=== PATIENT | female | born 1930 | race Caucasian/White ===

== ENCOUNTER 2021-01-15 00:09 | Inpatient (IN) | payer MEDICARE, BC ==
[~2021-01-15] VITALS: Ht 152.4 cm; Wt 50.1 kg
--- NOTE | 2021-01-15 00:52 | NUR ---
REPORT RECEIVED FROM [facility]
--- NOTE | 2021-01-15 01:11 | NUR ---
PT LAYING IN BED, ALL NEEDS IN REACH, CALL LIGHT IN REACH, NAD AT THIS TIME, VSS
--- NOTE | 2021-01-15 01:12 | NUR ---
PT NOT COMPLAINING OF ANY CHEST PAIN, PT STATED SHE JUST FEELS SLEEPY AT THIS TIME
[2021-01-15] MEDS ORDERED: HEPARIN 25,000 UNITS/250ML PMX 250 ML IV PRN (01:30)
[2021-01-15] MEDS ORDERED: HEPARIN 5,000 UNITS/ML, 1ML IV PRN (01:30)
[2021-01-15] MEDS ORDERED: HEPARIN 5,000 UNITS/ML, 1ML IV ONE (01:30)
[2021-01-15] MEDS ORDERED: HEPARIN 5,000 UNITS/ML, 1ML ONE (01:33)
[2021-01-15] MEDS ORDERED: HEPARIN 25,000 UNITS/250ML PMX 250 ML ONE (01:33)
[2021-01-15] MEDS ORDERED: morphine SULFATE 10 MG/ML, 1ML IVPush PRN (02:00)
[2021-01-15] MEDS ORDERED: ONDANSETRON 2MG/ML, 2ML IVPush PRN (02:00)
[2021-01-15] MEDS ORDERED: LABETALOL 5MG/ML, 20ML IVPush PRN (02:00)
[2021-01-15] MEDS ORDERED: NITROGLYCERIN 0.4 MG BOTTLE (25 TABS) SL PRN (02:00)
[2021-01-15] MEDS ORDERED: ACETAMINOPHEN 325 MG TABLET PO PRN (02:00)
[2021-01-15] MEDS ORDERED: MELATONIN 5 MG TABLET PO PRN (02:00)
[2021-01-15] MEDS ORDERED: NITROGLYCERIN 0.4 MG/SPRAY SL PRN (02:00)
[2021-01-15] MEDS ORDERED: POLYETHYLENE GLYCOL 17 GM PACKET PO PRN (02:00)
[2021-01-15 03:20] VITALS: BP 127/72
[2021-01-15] MEDS ORDERED: ALBUTEROL SULFATE 2.5 MG/3 ML NPPB PRN (04:30)
[2021-01-15] MEDS: ASPIRIN 81 MG TABLET EC PO SCH (05:58)
[2021-01-15] MEDS ORDERED: METOPROLOL SUCCINATE 25 MG TAB.ER.24H PO SCH (06:00)
[2021-01-15 06:01] VITALS: BP 105/77
[2021-01-15 06:47] LABS: BASOPHILS % (AUTO) 0 % (0-1); EOSINOPHILS % (AUTO) 0 % (1-7); LYMPHOCYTES % (AUTO) 15 % (22-44); MEAN CORPUSCULAR HEMOGLOBIN 31.5 pg (27.0-34.8); MEAN CORPUSCULAR HGB CONC 33.9 g/dL (32.4-35.8); MEAN PLATELET VOLUME 7.4 fL (7.4-10.4); MONOCYTES % (AUTO) 9 % (2-9); NEUTROPHILS % (AUTO) 75 % (42-75); PLATELET COUNT 613 x10^3/uL (130-400); RED BLOOD COUNT 3.68 x10^6/uL (3.82-5.3); RED CELL DISTRIBUTION WIDTH 13.9 % (9.6-15.2)
[2021-01-15 06:56] LABS: ANION GAP 5 mmol/L (5-15); CALCIUM 8.2 mg/dL (8.5-10.1); CHLORIDE 106 mmol/L (98-107); CHOLESTEROL, TOTAL 135 mg/dL (140-239); CREATININE 1.15 mg/dL (0.55-1.02); TRIGLYCERIDES 31 mg/dL (50-200); VLDL CHOLESTEROL 6 mg/dL (0-25)
[2021-01-15 07:06] LABS: CHOL/HDL RATIO 2.2; HDL CHOL % 45 % (28-40); HDL CHOLESTEROL (DIRECT) 61 mg/dL (40-60); LDL CHOLESTEROL,CALCULATED 68 mg/dL (54-169); LDL/HDL RATIO 1.1 (0.5-3.0)
[2021-01-15] MEDS ORDERED: LISINOPRIL 5 MG TABLET PO SCH (09:00)
[2021-01-15 15:30] VITALS: BP 94/69
[2021-01-15 21:00] VITALS: BP 94/58
[2021-01-15] MEDS: ATORVASTATIN 40 MG TABLET PO SCH (21:14)
[2021-01-16 01:06] VITALS: BP 89/45
[2021-01-16] MEDS: ASPIRIN 81 MG TABLET EC PO SCH (05:29)
[2021-01-16 05:33] VITALS: BP 90/50
[2021-01-16] MEDS: SODIUM CHLORIDE 0.9% 1,000 ML IV SCH ×4 (05:40→23:18)
[2021-01-16 06:23] LABS: BASOPHILS % (AUTO) 1 % (0-1); EOSINOPHILS % (AUTO) 1 % (1-7); LYMPHOCYTES % (AUTO) 19 % (22-44); MEAN CORPUSCULAR HEMOGLOBIN 31.9 pg (27.0-34.8); MEAN CORPUSCULAR HGB CONC 33.8 g/dL (32.4-35.8); MEAN PLATELET VOLUME 7.9 fL (7.4-10.4); MONOCYTES % (AUTO) 8 % (2-9); NEUTROPHILS % (AUTO) 71 % (42-75); PLATELET COUNT 616 x10^3/uL (130-400); RED BLOOD COUNT 3.65 x10^6/uL (3.82-5.3); RED CELL DISTRIBUTION WIDTH 13.5 % (9.6-15.2)
[2021-01-16 06:34] LABS: ALANINE AMINOTRANSFERASE 52 U/L (12-78); ALBUMIN 2.9 g/dL (3.4-5.0); ANION GAP 4 mmol/L (5-15); CALCIUM 8.5 mg/dL (8.5-10.1); CHLORIDE 107 mmol/L (98-107); CREATININE 1.13 mg/dL (0.55-1.02)
[2021-01-16 06:37] LABS: ALKALINE PHOSPHATASE 71 U/L (45-117); BILIRUBIN,TOTAL 0.6 mg/dL (0.2-1.0); TOTAL PROTEIN 6.2 g/dL (6.4-8.2)
[2021-01-16 08:03] VITALS: BP 94/56
[2021-01-16] MEDS ORDERED: TICAGRELOR 90 MG TABLET ONE (12:45)
[2021-01-16] MEDS ORDERED: BIVALIRUDIN 250 MG ONE (12:45)
[2021-01-16] MEDS ORDERED: LIDOCAINE-MPF 1%, 5ML ONE (12:45)
[2021-01-16] MEDS ORDERED: MIDAZOLAM 1 MG/ML, 2ML ONE (12:45)
[2021-01-16] MEDS ORDERED: VERAPAMIL 2.5 MG/ML, 2ML ONE (12:45)
[2021-01-16] MEDS ORDERED: HEPARIN 1,000 UNITS/ML, 10ML ONE (12:45)
[2021-01-16] MEDS ORDERED: FENTANYL PF 100 MCG/2ML ONE (12:45)
[2021-01-16 15:39] VITALS: BP 132/76
[2021-01-16] MEDS ORDERED: TICAGRELOR 90 MG TABLET PO SCH (21:00)
[2021-01-16 21:18] VITALS: BP 116/69
[2021-01-16] MEDS: CLOPIDOGREL 75 MG TABLET PO SCH (21:22)
[2021-01-16] MEDS: ATORVASTATIN 40 MG TABLET PO SCH (21:22)
[2021-01-17 03:00] VITALS: BP 113/61
[2021-01-17] MEDS: SODIUM CHLORIDE 0.9% 1,000 ML IV SCH ×3 (04:45→07:26)
[2021-01-17 05:55] LABS: BASOPHILS % (AUTO) 0 % (0-1); EOSINOPHILS % (AUTO) 2 % (1-7); LYMPHOCYTES % (AUTO) 17 % (22-44); MEAN CORPUSCULAR HEMOGLOBIN 31.5 pg (27.0-34.8); MEAN CORPUSCULAR HGB CONC 33.4 g/dL (32.4-35.8); MEAN PLATELET VOLUME 7.8 fL (7.4-10.4); MONOCYTES % (AUTO) 10 % (2-9); NEUTROPHILS % (AUTO) 70 % (42-75); PLATELET COUNT 618 x10^3/uL (130-400); RED BLOOD COUNT 3.07 x10^6/uL (3.82-5.3); RED CELL DISTRIBUTION WIDTH 13.4 % (9.6-15.2)
[2021-01-17 06:03] LABS: ANION GAP 5 mmol/L (5-15); CALCIUM 8.1 mg/dL (8.5-10.1); CHLORIDE 108 mmol/L (98-107)
[2021-01-17 06:04] LABS: CREATININE 0.78 mg/dL (0.55-1.02)
[2021-01-17 06:19] VITALS: BP 108/64
[2021-01-17] MEDS: ASPIRIN 81 MG TABLET EC PO SCH (06:20)
[2021-01-17] MEDS: METOPROLOL SUCCINATE 25 MG TAB.ER.24H PO SCH (06:20)
[2021-01-17] MEDS: CLOPIDOGREL 75 MG TABLET PO SCH (09:24)
[2021-01-17 13:46] VITALS: BP 102/57
[2021-01-17 19:30] VITALS: BP 100/60
[2021-01-17] MEDS: ATORVASTATIN 40 MG TABLET PO SCH (19:33)
[2021-01-18 01:20] VITALS: BP 124/69
[2021-01-18 06:02] VITALS: BP 128/71
[2021-01-18] MEDS: ASPIRIN 81 MG TABLET EC PO SCH (06:03)
[2021-01-18] MEDS: METOPROLOL SUCCINATE 25 MG TAB.ER.24H PO SCH (06:03)
[2021-01-18 06:40] LABS: BASOPHILS % (AUTO) 1 % (0-1); EOSINOPHILS % (AUTO) 3 % (1-7); LYMPHOCYTES % (AUTO) 18 % (22-44); MEAN CORPUSCULAR HEMOGLOBIN 32.1 pg (27.0-34.8); MEAN CORPUSCULAR HGB CONC 33.9 g/dL (32.4-35.8); MEAN PLATELET VOLUME 7.7 fL (7.4-10.4); MONOCYTES % (AUTO) 9 % (2-9); NEUTROPHILS % (AUTO) 70 % (42-75); PLATELET COUNT 652 x10^3/uL (130-400); RED BLOOD COUNT 3.29 x10^6/uL (3.82-5.3); RED CELL DISTRIBUTION WIDTH 13.5 % (9.6-15.2)
[2021-01-18 06:52] LABS: ANION GAP 4 mmol/L (5-15); CALCIUM 8.7 mg/dL (8.5-10.1); CHLORIDE 110 mmol/L (98-107); CREATININE 0.84 mg/dL (0.55-1.02)
[2021-01-18] MEDS: CLOPIDOGREL 75 MG TABLET PO SCH (09:19)
[2021-01-18] MEDS ORDERED: CLOP75TA PO (10:43)
[2021-01-18] MEDS ORDERED: METO25TA91 PO (10:43)
[2021-01-18] MEDS ORDERED: ASPI81TA45 PO (10:43)
[2021-01-18] MEDS ORDERED: ATOR40TA78 PO (10:43)
== END 2021-01-18 14:07 | DRG 246 ==
LOC: ED 02:12 → EDIP 03:26 → 5SO 03:27
PROVIDERS: ADMIT Internal Medicine; ATTEND Hospitalist
PROC: 4A023N7 Measurement of Cardiac Sampling and Pressure, Left Heart, Percutaneous Approach (ICD-10-PCS; principal; 2021-01-16)
PROC: 027035Z Dilation of Coronary Artery, One Artery with Two Drug-eluting Intraluminal Devices, Percutaneous Approach (ICD-10-PCS; 2021-01-16)
PROC: B2111ZZ Fluoroscopy of Multiple Coronary Arteries using Low Osmolar Contrast (ICD-10-PCS; 2021-01-16)
PROC: B2151ZZ Fluoroscopy of Left Heart using Low Osmolar Contrast (ICD-10-PCS; 2021-01-16)
DX: I21.4 Non-ST elevation (NSTEMI) myocardial infarction (principal); J96.01 Acute respiratory failure with hypoxia; N17.0 Acute kidney failure with tubular necrosis; E78.5 Hyperlipidemia, unspecified; D64.9 Anemia, unspecified; Z66 Do not resuscitate; J43.2 Centrilobular emphysema; I70.0 Atherosclerosis of aorta; F19.10 Other psychoactive substance abuse, uncomplicated; I07.1 Rheumatic tricuspid insufficiency; I25.10 Atherosclerotic heart disease of native coronary artery without angina pectoris; Z93.3 Colostomy status; Z90.711 Acquired absence of uterus with remaining cervical stump; Z87.891 Personal history of nicotine dependence; Z90.49 Acquired absence of other specified parts of digestive tract; Z95.5 Presence of coronary angioplasty implant and graft; Z90.710 Acquired absence of both cervix and uterus
CPT/HCPCS: 36415; 80048; 80053; 80061; 83735; 84443; 84484; 85025; 85520; 93005; 93306; 93458; 99156; 99157; 99291; C1769; C1894; C9600; G0378; J0583; J1644; J2250; J3010; C1725; C1874; C1887; J7030; Q9967